=== PATIENT | female | born 2000 | race Caucasian/White ===

== ENCOUNTER 2024-03-29 02:07 | Day surgery (SDC) | payer BC ==
[2024-03-29] MEDS ORDERED: Tranexamic Acid 1,000 MG/10 ML VIAL ONE ×2 (02:26→03:54)
[2024-03-29] MEDS ORDERED: Racepinephrine 2.25% 0.5 ML NEB ONE ×3 (02:33→04:14)
[2024-03-29 03:20] LABS: #Basophils Less than 0.03 10x3/uL (0.0-0.2); %Basophils 0.1 % (0.0-1.0); %Eosinophils 1.3 % (0.0-10.0); %Lymphocytes 24.8 % (21.0-51.0); %Monocytes 7.7 % (0.0-10.0); %Neutrophils 65.2 % (42.0-75.0); Hematocrit 42.1 % (36.0-47.0); Hemoglobin 14.7 g/dL (12.0-16.0); Mean Corpuscular HGB CONC 34.9 g/dL (32.0-36.0); Mean Corpuscular Hemoglobin 31.4 pg (27.0-31.0); Mean Platelet Volume 8.4 fL (7.4-10.4); Platelet Count 501 10x3/uL (130-400); RBC Distribution Width 11.8 % (11.5-14.5); Red Blood Cell (RBC) Count 4.68 mill/uL (4.20-5.40)
[2024-03-29 03:40] LABS: Globulin 3.8 g/dL (2.4-3.5)
[2024-03-29 03:45] LABS: ALT (SGPT) 408 U/L (8-55); AST (SGOT) 399 U/L (5-34); Albumin 3.9 g/dL (3.5-5.0); Alkaline Phosphatase 305 U/L (40-110); Anion Gap 22 mmol/L (10-20); BUN (Urea Nitrogen) 13 mg/dL (7.0-18.7); Bilirubin, Total 0.5 mg/dL (0.2-1.2); Calc. Creatinine Clearance 0 mL/min (70-130); Calcium 9.8 mg/dL (7.8-10.44); Carbon Dioxide 18 mmol/L (22-29); Chloride 104 mmol/L (98-107); Estimated GFR 118; Glucose 102 mg/dL (70-105); Potassium 4.2 mmol/L (3.5-5.1); Protein, Total 7.7 g/dL (6.0-8.3); Sodium 140 mmol/L (136-145)
[2024-03-29] MEDS ORDERED: Ondansetron PF 4 MG/2 ML Vial ONE ×2 (04:06→05:53)
[2024-03-29] MEDS ORDERED: fentaNYL PF 100 MCG/2 ML SYRINGE ONE ×2 (05:52→06:56)
[2024-03-29] MEDS ORDERED: PROPOFOL 20 ML ONE (05:52)
[2024-03-29] MEDS ORDERED: SUCCINYLCHOLINE/SOD CL,ISO/PF 200 MG/10 ML SYRINGE FS ONE (05:53)
[2024-03-29] MEDS ORDERED: Lidocaine 1% PF 5 ML VIAL ONE (05:53)
[2024-03-29] MEDS ORDERED: Dexamethasone 20 MG/5 ML VIAL ONE (06:21)
[2024-03-29] MEDS ORDERED: Sodium Chloride 0.9% 100 ML ONE (06:48)
[2024-03-29] MEDS ORDERED: Dexmedetomidine 200 MCG/2 ML VIAL ONE (06:48)
[2024-03-29] MEDS ORDERED: fentaNYL 50 mcg/mL 1 mL Vial ONE ×2 (07:24→07:49)
[2024-03-29] MEDS ORDERED: HYDROcodone/Acetaminophen 5/325 mg Tablet ONE (08:23)
== END 2024-03-29 09:10 | disposition home or self-care (01) ==
LOC: ERS 02:07 → SDC 06:03
PROVIDERS: ATTEND Otolaryngology
PROC: 0W330ZZ Control Bleeding in Oral Cavity and Throat, Open Approach (ICD-10-PCS; principal; 2024-03-29)
DX: J95.831 Postprocedural hemorrhage of a respiratory system organ or structure following other procedure (principal); Z88.8 Allergy status to other drugs, medicaments and biological substances
CPT/HCPCS: 36415; 80053; 85025; 96374; 96375; J1100; J2405; J2704; J3010

== ENCOUNTER 2024-07-06 08:35 | Day surgery (SDC) | payer BC ==
[2024-07-05 15:36] VITALS: BMI 24.2
[2024-07-06] MEDS ORDERED: Sodium Chloride 0.9% 100 ML ONE (09:19)
[2024-07-06] MEDS ORDERED: cefOXitin 2 GM VIAL ONE ×2 (09:19→11:05)
[2024-07-06] MEDS ORDERED: PROPOFOL 20 ML ONE (10:01)
[2024-07-06] MEDS ORDERED: fentaNYL PF 100 MCG/2 ML SYRINGE ONE (10:01)
[2024-07-06] MEDS ORDERED: Lidocaine 1% PF 5 ML VIAL ONE (10:01)
[2024-07-06] MEDS ORDERED: Rocuronium Bromide 10 MG/ML (10ML VIAL) ONE (10:01)
[2024-07-06] MEDS ORDERED: EPINEPHrine 1 MG/ML VIAL ONE (10:35)
[2024-07-06] MEDS ORDERED: Bupivacaine 0.25% HCL 30 ML VIAL ONE (10:35)
[2024-07-06] MEDS ORDERED: Indocyanine Green 25 MG/10 ML VIAL ONE (10:40)
[2024-07-06] MEDS ORDERED: Midazolam HCl 2 mg/2 ml Vial ONE (10:46)
[2024-07-06] MEDS ORDERED: Sterile Water 20 ML ONE (11:07)
[2024-07-06] MEDS ORDERED: Ondansetron PF 4 MG/2 ML Vial ONE (11:19)
[2024-07-06] MEDS ORDERED: Dexamethasone 20 MG/5 ML VIAL ONE (11:19)
[2024-07-06] MEDS ORDERED: Ketorolac Tromethamine 30 MG (1 mL) VIAL ONE (11:19)
[2024-07-06] MEDS ORDERED: SUGAMMADEX SODIUM 200 MG/2 ML VIAL ONE (11:40)
[2024-07-06] MEDS ORDERED: HYDROcodone/Acetaminophen 5/325 mg Tablet ONE (13:12)
== END 2024-07-06 13:47 | disposition home or self-care (01) ==
LOC: SDC 08:35
PROVIDERS: ATTEND Surgery
PROC: 0FT44ZZ Resection of Gallbladder, Percutaneous Endoscopic Approach (ICD-10-PCS; principal; 2024-07-06)
DX: K80.10 Calculus of gallbladder with chronic cholecystitis without obstruction (principal); F90.9 Attention-deficit hyperactivity disorder, unspecified type; F41.9 Anxiety disorder, unspecified; Z79.899 Other long term (current) drug therapy; Z91.040 Latex allergy status; Z88.5 Allergy status to narcotic agent
CPT/HCPCS: 88304; C1889; J0171; J0665; J0694; J1100; J1885; J2250; J2405; J2704